=== PATIENT | male | born 1975 | race Caucasian/White ===

== ENCOUNTER 2016-12-10 15:03 | Emergency (ER) | payer OTHER ==
[~2016-12-10] VITALS: Ht 172.7 cm; Wt 99.8 kg
[2016-12-10] MEDS ORDERED: LISINOPRIL20 MG PO (15:37)
[2016-12-10] MEDS ORDERED: AMLODIPINE BESY1 TAB PO (15:38)
[2016-12-10] MEDS ORDERED: PULMICORT90 MCG/ACT INH (15:38)
[2016-12-10] MEDS ORDERED: NOVAPLUS V0.09 MG/Ac INH (15:38)
[2016-12-10] MEDS ORDERED: PREDNISONE50 MG PO ×2 (17:02→17:07)
[2016-12-10] MEDS ORDERED: CYCLOBENZAPRINE10 MG PO (17:23)
[2016-12-11] MEDS ORDERED: NAPROSYN500 MG PO (16:09)
== END 2016-12-10 17:16 | disposition home or self-care (01) ==
LOC: ED 15:03
DX: M54.16 Radiculopathy, lumbar region (principal); Z88.0 Allergy status to penicillin; Z79.899 Other long term (current) drug therapy

== ENCOUNTER 2016-12-11 15:22 | Emergency (ER) | payer OTHER ==
[~2016-12-11] VITALS: Ht 172.7 cm; Wt 99.8 kg
[~2016-12-11 15:22] MED LIST: AMLODIPINE BESY1 TAB PO; CYCLOBENZAPRINE10 MG PO; LISINOPRIL20 MG PO; NOVAPLUS V0.09 MG/Ac INH; PREDNISONE50 MG PO; PULMICORT90 MCG/ACT INH
[2016-12-11] MEDS ORDERED: NAPROSYN500 MG PO (16:09)
== END 2016-12-11 16:33 | disposition home or self-care (01) ==
LOC: ED 15:22
DX: M54.41 Lumbago with sciatica, right side (principal); R03.0 Elevated blood-pressure reading, without diagnosis of hypertension; Z88.0 Allergy status to penicillin; Z79.899 Other long term (current) drug therapy